=== PATIENT | female | born 2000 | race Two or more races ===

== ENCOUNTER 2022-11-14 17:39 | Emergency (ER) | payer OTHER ==
[~2022-11-14] VITALS: Ht 160 cm; Wt 50.0 kg
[2022-11-14 17:50] VITALS: BP 117/73
[2022-11-14] MEDS ORDERED: IBUPROFEN 600 MG TABLET PO ONE (18:00)
== END 2022-11-14 19:51 | disposition home or self-care (01) ==
LOC: EMS 17:39
DX: S09.90XA Unspecified injury of head, initial encounter (principal); X58.XXXA Exposure to other specified factors, initial encounter; Y93.89 Activity, other specified; Y92.89 Other specified places as the place of occurrence of the external cause; Y99.8 Other external cause status
CPT/HCPCS: 70450; 99284